=== PATIENT | male | born 1980 | race Caucasian/White ===

== ENCOUNTER 2017-01-28 18:39 | Emergency (ER) | payer MEDICAID ==
[2017-01-28 18:43] VITALS: BMI 40.7
[2017-01-28 18:44] VITALS: TEMP 98; O2SAT 98
--- NOTE | 2017-01-28 19:44 | C.PDOC ---
History Of Present Illness 36 y/o male presents to ED with complaint of right wrist and left ankle pain status post trip and fall on the sidewalk several hours prior to arrival. Patient states he landed onto his right wrist while breaking his fall. Patient reports increased pain with movement of the wrist. Denies taking any pain medications. Otherwise, denies head injury or LOC, new extremity weakness/ numbness, obvious deformity, or other complaints. Time Seen by Provider: 01/28/17 19:14 Chief Complaint (Nursing): Finger,Hand,&Wrist History Per: Patient History/Exam Limitations: no limitations Onset/Duration Of Symptoms: Hrs Current Symptoms Are (Timing): Still Present Quality: "Pain" Severity: None Exacerbating Factor(s): Movement Recent travel outside of the [place]: No Past Medical History Reviewed: Historical Data, Nursing Documentation, Vital Signs Vital Signs: Last Vital Signs Temp 98 F 01/28/17 18:43 Pulse 73 01/28/17 20:16 Resp 16 01/28/17 20:16 BP 140/83 01/28/17 20:16 Pulse Ox 98 01/28/17 20:16 - Medical History PMH: No Chronic Diseases Family History: States: Unknown Family Hx - Social History Hx Alcohol Use: Yes Hx Substance Use: No - Immunization History Hx Tetanus Toxoid Vaccination: Yes Hx Influenza Vaccination: No Hx Pneumococcal Vaccination: No Review Of Systems Except As Marked, All Systems Reviewed And Found Negative. Constitutional: Negative for: Fever, Chills Cardiovascular: Negative for: Chest Pain Musculoskeletal: Positive for: Other (Left ankle pain; Right wrist pain ) Skin: Negative for: Rash Neurological: Negative for: Weakness, Numbness Physical Exam - Physical Exam Appears: Non-toxic, No Acute Distress Skin: Normal Color, Warm, Dry Head: Atraumatic, Normacephalic Extremity: Normal ROM, Tenderness (right wrist), Capillary Refill (< 2 sec. ), No Deformity, No Swelling Extremity: Bilateral: Normal Color And Temperature Pulses: Left Radial: Normal, Right Radial: Normal Neurological/Psych: Oriented x3, Normal Speech, Normal Cognition, Normal Motor, Normal Sensation ED Course And Treatment O2 Sat by Pulse Oximetry: 98 (RA) Pulse Ox Interpretation: Normal - Other Rad Right Wrist X-Ray X-Ray: Interpreted by Me, Viewed By Me Interpretation: negative for fx or dislocation Progress Note: Treated with Motrin. Right wrist x-ray ordered/reviewed. Splint applied by CP, checked by me. On reassessment, patient is resting comfortably, and is in no acute distress. Patient instructed to follow up with clinic/PMD within 1-2 days. 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 - Scribe Statement The provider has reviewed the documentation as recorded by the Sandra Hart Provider Scribe Attestation: All medical record entries made by the Scribe were at my direction and personally dictated by me. I have reviewed the chart and agree that the record accurately reflects my personal performance of the history, physical exam, medical decision making, and the department course for this patient. I have also personally directed, reviewed, and agree with the discharge instructions and disposition.
[2017-01-28 20:18] VITALS: BP 140/83; PULSE 73; RESP 16
--- NOTE | 2017-01-29 09:07 | RAD ---
Right wrist four views History: Pain. Fall. Comparison: None available. Findings: No evidence for acute displaced fracture or dislocation. Impression: Negative acute. If pain persists, consider MRI.
== END 2017-01-28 20:16 | disposition home or self-care (01) ==
LOC: C.ER 18:39
DX: S63.501A Unspecified sprain of right wrist, initial encounter (principal); W01.0XXA Fall on same level from slipping, tripping and stumbling without subsequent striking against object, initial encounter; Y92.480 Sidewalk as the place of occurrence of the external cause

== ENCOUNTER 2017-04-28 16:40 | Emergency (ER) | payer OTHER ==
[2017-04-28 16:40] VITALS: BMI 40.7
[2017-04-28 17:09] VITALS: BP 128/87; PULSE 86; RESP 18; TEMP 98; O2SAT 97
--- NOTE | 2017-04-28 17:23 | C.PDOC ---
History Of Present Illness 36 y/o male presents to ED for evaluation of right hand swelling noticed "few weeks ago". 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 Patient denies recent injury to hand, weakness, sensory or vascular deficits to Right hand, denies any other complaints at this time. Time Seen by Provider: 04/28/17 17:09 Chief Complaint (Nursing): Finger,Hand,&Wrist History Per: Patient History/Exam Limitations: no limitations Onset/Duration Of Symptoms: Days Past Medical History Reviewed: Historical Data, Nursing Documentation, Vital Signs Vital Signs: Last Vital Signs Temp 98.0 F 04/28/17 17:09 Pulse 86 04/28/17 17:09 Resp 18 04/28/17 17:09 BP 128/87 04/28/17 17:09 Pulse Ox 97 04/28/17 17:28 Family History: States: Unknown Family Hx - Social History Hx Alcohol Use: Yes Hx Substance Use: No - Immunization History Hx Tetanus Toxoid Vaccination: Yes Hx Influenza Vaccination: No Hx Pneumococcal Vaccination: No Review Of Systems Except As Marked, All Systems Reviewed And Found Negative. 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 NO erythema, no tenderness to palpation. FAROM, no neurovascular deficits.) Pulses: Left Radial: Normal, Right Radial: Normal Neurological/Psych: Oriented x3, Normal Speech, Normal Motor, Normal Sensation, Normal Reflexes ED Course And Treatment O2 Sat by Pulse Oximetry: 97 (RA) Pulse Ox Interpretation: Normal Progress Note: Pt refused imaging " I dont think its broken". On re-eavl, pt is afebrile, hemodynamicaly stable. Non-toxic. Right hand: mild edema, arthralgia. FAROM, no neurovascular deficits, no cellulitis. Volar Splint applied to Right wrist. Pt advised and ref. to f/[facility] hand specialist in 2-3 days for re-eavluation. Return to ED if any worsening or new changes. Disposition Counseled Patient/Family Regarding: Diagnosis, Need For Followup, Rx Given - Disposition Referrals: [facility] [Outside] [facility] [place] [Outside] Disposition: HOME/ ROUTINE Disposition Time: 17:19 Condition: STABLE Additional Instructions: Splint Ibuprofen Follow up with hand specialists in 2-3 days for re-evaluation. Return to ED if any worsening or new changes. 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 - Scribe Statement The provider has reviewed the documentation as recorded by the Sandra Huang All medical record entries made by the Sandra were at my direction and personally dictated by me. I have reviewed the chart and agree that the record accurately reflects my personal performance of the history, physical exam, medical decision making, and the department course for this patient. I have also personally directed, reviewed, and agree with the discharge instructions and disposition.
--- NOTE | 2017-04-28 17:24 | C.PDOC ---
History Of Present Illness 36 y/o male presents to ED for evaluation of right hand swelling noticed "few weeks ago". 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 Patient denies recent injury to hand, numbness, weakness or any other complaints at this time. Time Seen by Provider: 04/28/17 17:09 Chief Complaint (Nursing): Finger,Hand,&Wrist History Per: Patient History/Exam Limitations: no limitations Onset/Duration Of Symptoms: Days Past Medical History Reviewed: Historical Data, Nursing Documentation, Vital Signs Vital Signs: Last Vital Signs Temp 98.0 F 04/28/17 17:09 Pulse 86 04/28/17 17:09 Resp 18 04/28/17 17:09 BP 128/87 04/28/17 17:09 Pulse Ox 97 04/28/17 17:25 Family History: States: Unknown Family Hx - Social History Hx Alcohol Use: Yes Hx Substance Use: No - Immunization History Hx Tetanus Toxoid Vaccination: Yes Hx Influenza Vaccination: No Hx Pneumococcal Vaccination: No Review Of Systems Except As Marked, All Systems Reviewed And Found Negative. Musculoskeletal: Positive for: Hand Pain Skin: Negative for: Rash Neurological: Negative for: Weakness, Numbness Physical Exam - Physical Exam Appears: Non-toxic, No Acute Distress Skin: Normal Color, Warm Extremity: Capillary Refill (<2 seconds), No Deformity, Other (Mild non- specific diffuse dorsal rt hand edema ) Pulses: Left Radial: Normal, Right Radial: Normal Neurological/Psych: Oriented x3, Normal Speech, Normal Motor, Normal Sensation, Normal Reflexes ED Course And Treatment O2 Sat by Pulse Oximetry: 97 (RA) Pulse Ox Interpretation: Normal Medical Decision Making Medical Decision Making: Patient is refusing imaging at the time Disposition - Disposition Referrals: [facility] [Outside] [facility] [place] [Outside] Additional Instructions: Splint Ibuprofen Follow up with hand specialists in 2-3 days for re-evaluation. Return to ED if any worsening or new changes. Prescriptions: Ibuprofen [Motrin Tab] 600 mg PO Q6 #20 tab Instructions: Hand Sprain (ED), Arthralgia (ED) - PA / APPLI[employer]ER [employer] / Resident Statement MD/DO has reviewed & agrees with the documentation as recorded. - Scribe Statement The provider has reviewed the documentation as recorded by the Alexibphyllis Huang All medical record entries made by the Scribe were at my direction and personally dictated by me. I have reviewed the chart and agree that the record accurately reflects my personal performance of the history, physical exam, medical decision making, and the department course for this patient. I have also personally directed, reviewed, and agree with the discharge instructions and disposition.
== END 2017-04-28 17:38 | disposition home or self-care (01) ==
LOC: C.ER 16:40
DX: M25.541 Pain in joints of right hand (principal)

== ENCOUNTER 2017-06-25 10:12 | Emergency (ER) | payer OTHER ==
[2017-06-25 10:13] VITALS: BMI 40.7
[2017-06-25 11:12] VITALS: TEMP 97.9
--- NOTE | 2017-06-25 11:56 | C.PDOC ---
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 Pt reports, tipped and landed onto Left side. Otherwise, pt denies head injury, LOC, syncope, neck pain, CP, denies deformity, sensory or vascular deficits to B/L UEs and LEs, denies skin changes. Ambulate to Ed with stable gait, not in any apparent distress. Time Seen by Provider: 06/25/17 11:20 Chief Complaint (Nursing): Lower Extremity Problem/Injury History Per: Patient Onset/Duration Of Symptoms: Sudden Onset Past Medical History Reviewed: Historical Data, Nursing Documentation, Vital Signs Vital Signs: Last Vital Signs Temp 97.9 F 06/25/17 11:06 Pulse 88 06/25/17 11:06 Resp 14 06/25/17 11:06 BP 144/90 06/25/17 11:06 Pulse Ox 97 06/25/17 11:06 - Medical History PMH: No Chronic Diseases Denies: Chronic Kidney Disease Surgical History: No Surg Hx Family History: States: Unknown Family Hx - Social History Hx Alcohol Use: No Hx Substance Use: No - Immunization History Hx Tetanus Toxoid Vaccination: Yes Hx Influenza Vaccination: No Hx Pneumococcal Vaccination: No Review Of Systems Except As Marked, All Systems Reviewed And Found Negative. Constitutional: Negative for: Fever, Chills Eyes: Negative for: Vision Change ENT: Negative for: Ear Discharge, Nose Discharge Cardiovascular: Negative for: Chest Pain Gastrointestinal: Negative for: Nausea, Vomiting Musculoskeletal: Positive for: Arm Pain, Leg Pain. Negative for: Neck Pain, Back Pain Skin: Negative for: Bruising Neurological: Negative for: Weakness, Numbness, Altered Mental Status, Headache , Dizziness Physical Exam - Physical Exam Appears: Well, Non-toxic, No Acute Distress Skin: Normal Color, Warm, No Ecchymosis Head: Atraumatic, Normacephalic Eye(s): bilateral: PERRL Nose: No Deformity, No Tenderness Oral Mucosa: Moist, No Drooling Neck: No Midline Cervical Tenderness, No Paracervical Tenderness, No Step Off Deformity, Supple Chest: Symmetrical, No Deformity, No Tenderness Gastrointestinal/Abdominal: Soft, No Tenderness Back: No Vertebral Tenderness, No Paraspinal Tenderness Extremity: Normal ROM (B/L UEs and LEs.), Tenderness (mild tenderness over left forear and left lower leg. NO palpable deformity, no ecchymoses. FAROM, no neurovascular deficits.), Capillary Refill (less than 2sec to B/L LEs.), No Deformity, No Swelling Extremity: Bilateral: Atraumatic Neurological/Psych: Oriented x3, Normal Speech, Normal Motor, Normal Sensation, Normal Reflexes ED Course And Treatment O2 Sat by Pulse Oximetry: 97 - Other Rad Left forearm X-Ray: Interpreted by Me, Viewed By Me Interpretation: (-) acute fx or dislocation Left tib/fib X-Ray: Interpreted by Me, Viewed By Me Interpretation: (-) acute fx or dislocation Progress Note: On re-evaluation, pt is afebirle, hemodynamicaly stable. Non- toxic. AMbulatory in ED with stable gait. Head: AT/NC. neck: (-) midline tenderness. B/L UEs and LEs: FAROM, no neurovascular deficits, no contusion. Neuorlogicaly intact. Imaging review and appears normal. Pt advised on course of ds. ref. to f/u with PMD and Ortho in2 -3 days for re-eavl. return to ED if any new changes. Disposition Counseled Patient/Family Regarding: Studies Performed, Diagnosis, Need For Followup - Disposition Referrals: Cesar Edge III, MD [Staff Provider] - Disposition: HOME/ ROUTINE Disposition Time: 11:56 Condition: STABLE Additional Instructions: Ice, light duty to Left leg and left arm for 2-3 days Ice, nano wrap as need Follow up with Orthopedist in 2-3 days as need for re-evaluation. return if any new changes. Prescriptions: Ibuprofen [Motrin Tab] 600 mg PO Q6 #20 tab Instructions: Foot Contusion (ED), Contusion in Adults (ED) Forms: [employer] ([employer]) - Clinical Impression Clinical Impression: Forearm contusion, Contusion of leg
[2017-06-25 12:20] VITALS: BP 124/78; PULSE 78; RESP 18; O2SAT 98
--- NOTE | 2017-06-25 12:20 | RAD ---
PROCEDURE: Radiographs of the left elbow. HISTORY: injury COMPARISON: None available. FINDINGS: BONES: No acute displaced fracture. JOINTS: No dislocation. SOFT TISSUES: Soft tissue swelling. No evidence of radiopaque foreign body. JOINT EFFUSION: No significant joint effusion. OTHER FINDINGS: None IMPRESSION: Soft tissue swelling. No acute displaced fracture, dislocation, or significant joint effusion identified. If symptoms persist, or if there is continued clinical concern, x-ray follow-up in 7-10 days should be considered.
--- NOTE | 2017-06-25 12:20 | RAD ---
PROCEDURE: Radiographs of the left tibia and fibula. HISTORY: injury COMPARISON: None available. TECHNIQUE: Frontal and lateral views obtained. FINDINGS: BONES: No acute displaced fracture. JOINT SPACES: No dislocation. OTHER FINDINGS: Soft tissues appear unremarkable. No evidence of radiopaque foreign body. IMPRESSION: No acute displaced fracture, dislocation, or significant joint effusion identified. If symptoms persist, or if there is continued clinical concern, x-ray follow-up in 7-10 days should be considered.
== END 2017-06-25 12:20 | disposition home or self-care (01) ==
LOC: C.ER 10:12
DX: S50.12XA Contusion of left forearm, initial encounter (principal); S80.12XA Contusion of left lower leg, initial encounter; W01.0XXA Fall on same level from slipping, tripping and stumbling without subsequent striking against object, initial encounter; Y93.9 Activity, unspecified; Y92.9 Unspecified place or not applicable